=== PATIENT | female | born 1945 | race Caucasian/White ===

== ENCOUNTER → 2020-08-10 08:40 | Outpatient (CLI) | payer MEDICARE, SELFPAY ==
--- NOTE | 2020-08-10 08:43 | RDU_ITS ---
Reason For Study: uncontrolled HTN Right Renal Artery Left Renal Artery Right renal artery ostium Left renal artery ostium 102.6/9.5 104.5/13.2 RSV/EDV. PSV/EDV. Right renal artery proximal Left renal artery proximal PSV/EDV 80.7/15.0 PSV/EDV. 110.0/9.5 . Right renal artery mid 104.5/16.8 Left renal artery mid 82.6/11.3 PSV/EDV. PSV/EDV . Right renal artery distal Left renal artery distal 133.7/35.2 104.2/23.8 PSV/EDV. PSV/EDV. Right RAR 1.3. Left RAR 1.6. Right Renal Parenchyma Left Renal Parenchyma Upper Pole Medula 33.1/7.5 PSV/EDV. Left upper pole medulla 30.2/5.6 Right upper pole medulla EDR .23 . PSV/EDV . Right upper pole medulla R.I. .77 . Left upper pole medulla EDR .19 . Upper Magnus Cortx 18.8/6.2 PSV/EDV. Left upper pole medulla R.I. .81 . Right upper pole cortex EDR .33 . UP Cortex 18.5/5.0 PSV/EDV. Right upper pole cortex R.I. .67 . Left upper pole cortex EDR .27 . Right lower Pole medulla 23.2/5.1 Left upper pole cortex R.I. .73 . PSV/EDV . Left lower Pole medulla 21.6/5.7 Right lower pole medulla EDR .22 . PSV/EDV . Right lower pole medulla R.I. .78 . Left lower pole medulla EDR .26 . Lower Pole Cortex 13.8/4.5 PSV/EDV. Left lower pole medulla R.I. .74 . Right lower pole cortex EDR .33 . Lower Pole Cortx 17.9/6.3 PSV/EDV. Right lower pole cortex R.I. .67 . Left lower pole cortex EDR .35 . Right Renal Hilar Left lower pole cortex R.I. .65 . Right Hilar avg 35.8/5.6 PSV/EDV. Left Renal Hilar Right hilar acceleration time 50.0 LT Hilar avg 47.4/9.0 PSV/EDV . m/sec. Left hilar acceleration time 90.0 Right Renal Dimensions m/sec. Right kidney size 10.1 cm . Left Renal Dimensions Right cortical dimension 1.13 cm . Left kidney size 9.66 cm . Left cortical dimension 1.28 cm . Aorta Proximal abdominal aorta 1.34 x 1.48 cm . Proximal abdominal aorta peak systolic velocity is 82.5 cm/sec . Distal abdominal aorta 1.0 x .97 cm . Distal abdominal aorta peak systolic velocity is 175.3 cm/sec . Normal renal veins bilat. Interpretation Summary Dimensions of the intra-abdominal aorta appear normal, without evidence of aneurysmal dilatation. Renal artery velocities are bilaterally normal. Acceleration times are normal bilaterally. Renal- aortic ratios are also bilaterally normal. There is no evidence of hemodynamically significant renal artery stenosis on either side. Cortical dimensions are bilaterally normal. Kidneys appear normal in size bilaterally. Ordering Physician: Lesly Dixon Performed By: Camden Motley RVT
== END ==
PROVIDERS: PCP Nurse Practitioner Adult Health; Referring Provider Nurse Practitioner Adult Health; Visit Provider Nurse Practitioner Adult Health
DX: I10 Essential (primary) hypertension (principal)
CPT/HCPCS: 93975